=== PATIENT | female | born 1985 | race Two or more races ===

== ENCOUNTER 2017-11-29 14:39 | Emergency (ER) | payer MEDICAID ==
[~2017-11-29] VITALS: Ht 152.4 cm; Wt 56.7 kg
[2017-11-29 14:46] VITALS: BP 115/61
== END 2017-11-29 16:17 | disposition home or self-care (01) ==
LOC: ER 14:44
DX: K42.9 Umbilical hernia without obstruction or gangrene (principal)
CPT/HCPCS: A4606; Z7502; Z7610

== ENCOUNTER 2021-11-25 18:45 | Emergency (ER) | payer MEDICAID ==
[~2021-11-25] VITALS: Ht 149.9 cm; Wt 47.6 kg
--- NOTE | 2021-11-25 18:45 | NUR ---
C/O FLU LIKE SYMPTOMS X 2 WEEKS, COUGHING BLOOD, AFEBRILE, NO BODY PAIN. VITALS ARE WITHIN NORMAL LIMTIS, NO RESP DISTRESS NOTED.
[2021-11-25 19:07] VITALS: BP 118/71
--- NOTE | 2021-11-25 19:30 | NUR ---
COVID SWAB AND INF SENT TO LAB.
--- NOTE | 2021-11-25 19:30 | NUR ---
Fernie acevedo in [facility] - 11/25/21 at 1930 by NANDO COVID SWAB AND INF SENT TO LAB.
[2021-11-25] MEDS ORDERED: BENZ-13 PO ×2 (20:01→20:08)
--- NOTE | 2021-11-25 20:15 | NUR ---
Patient discharged to home in stable condition. Written and verbal after care instructions given. Patient verbalizes understanding of instruction.
== END 2021-11-25 20:15 | disposition home or self-care (01) ==
LOC: ER 18:45
DX: R05.9 Cough, unspecified (principal)
CPT/HCPCS: 71046; 87426; 87804; 99284; C9803